=== PATIENT | female | born 1945 | race Two or more races ===

== ENCOUNTER 2017-11-25 09:39 | Outpatient (CLI) | payer OTHER ==
[~2017-11-25 09:39] MED LIST: CIPRO500 MG PO; DIOVAN HCT 160-1 TAB PO; MOBIC15 MG PO
== END 2017-11-25 10:21 | disposition home or self-care (01) ==
LOC: LAB 09:39
DX: G70.00 Myasthenia gravis without (acute) exacerbation (principal)

== ENCOUNTER 2018-04-01 14:48 | Outpatient (CLI) | payer OTHER | END 2018-04-01 16:02 | disposition home or self-care (01) | LOC: RAD 501 14:48 | DX: M25.571 Pain in right ankle and joints of right foot (principal) ==

== ENCOUNTER 2018-04-12 09:56 | Outpatient (CLI) | payer OTHER | END 2018-04-12 09:57 | disposition home or self-care (01) | LOC: LAB 09:56 | DX: E55.9 Vitamin D deficiency, unspecified (principal); M85.9 Disorder of bone density and structure, unspecified; E21.2 Other hyperparathyroidism; M81.8 Other osteoporosis without current pathological fracture; E56.1 Deficiency of vitamin K; E88.89 Other specified metabolic disorders; E83.42 Hypomagnesemia ==

== ENCOUNTER 2018-04-12 10:58 | Outpatient (CLI) | payer OTHER | END 2018-04-12 12:53 | disposition home or self-care (01) | LOC: MAMO-SONO 10:58 | DX: Z12.31 Encounter for screening mammogram for malignant neoplasm of breast (principal); Z87.898 Personal history of other specified conditions; N60.11 Diffuse cystic mastopathy of right breast ==

== ENCOUNTER 2018-04-19 09:11 | Emergency (ER) | payer OTHER ==
[~2018-04-19] VITALS: Ht 162.6 cm; Wt 65.3 kg
[2018-04-19] MEDS ORDERED: BONIVA150 MG PO (09:25)
[2018-04-19] MEDS ORDERED: ASPIR 8181 MG PO (09:27)
[2018-04-19] MEDS ORDERED: SYNTHROID50 MCG PO (09:27)
[2018-04-19] MEDS ORDERED: MEDROLPACK PO (12:50)
[2018-04-19] MEDS ORDERED: NORFLEX100MG PO (13:08)
== END 2018-04-19 13:22 | disposition home or self-care (01) ==
LOC: ER 09:11
DX: M79.605 Pain in left leg (principal); M54.5 Low back pain; I87.2 Venous insufficiency (chronic) (peripheral); R07.89 Other chest pain

== ENCOUNTER 2018-04-20 09:02 | Emergency (ER) | payer OTHER ==
[~2018-04-20] VITALS: Ht 162.6 cm; Wt 65.8 kg
[~2018-04-20 09:02] MED LIST changes: +ASPIR 8181 MG PO; +BONIVA150 MG PO; +MEDROLPACK PO; +NORFLEX100MG PO; +SYNTHROID50 MCG PO
== END 2018-04-20 13:37 | disposition home or self-care (01) ==
LOC: ER 09:02
DX: M54.32 Sciatica, left side (principal)

== ENCOUNTER 2018-05-20 16:20 | Outpatient (CLI) | payer OTHER | END 2018-05-20 16:47 | disposition home or self-care (01) | LOC: RAD 16:20 | DX: G56.21 Lesion of ulnar nerve, right upper limb (principal); M79.671 Pain in right foot ==

== ENCOUNTER 2018-05-31 10:48 | Outpatient (CLI) | payer OTHER | END 2018-05-31 10:56 | disposition home or self-care (01) | LOC: NUCLEAR 10:48 | DX: M81.0 Age-related osteoporosis without current pathological fracture (principal) ==

== ENCOUNTER 2018-11-01 09:58 | Outpatient (CLI) | payer OTHER | END 2018-11-01 13:25 | disposition home or self-care (01) | LOC: LAB 09:58 | DX: I10 Essential (primary) hypertension (principal); E11.9 Type 2 diabetes mellitus without complications; E03.8 Other specified hypothyroidism; E78.2 Mixed hyperlipidemia ==

== ENCOUNTER → 2019-01-19 08:37 | Outpatient (CLI) | payer OTHER | END | disposition home or self-care (01) | LOC: LAB 08:37 | DX: R79.89 Other specified abnormal findings of blood chemistry (principal); I10 Essential (primary) hypertension; E07.89 Other specified disorders of thyroid ==

== ENCOUNTER 2019-02-07 15:20 | Outpatient (CLI) | payer OTHER | END 2019-02-07 15:23 | disposition home or self-care (01) | LOC: RAD 15:20 | DX: M54.2 Cervicalgia (principal) ==

== ENCOUNTER → 2019-02-10 | Outpatient (CLI) | payer OTHER | END | disposition home or self-care (01) | LOC: NUCLEAR 11:00 | DX: I20.9 Angina pectoris, unspecified (principal) | CPT/HCPCS: 78452; 93017; A9500; J0153 ==

== ENCOUNTER 2019-02-18 16:38 | Outpatient (CLI) | payer OTHER | END 2019-02-18 17:02 | disposition home or self-care (01) | LOC: LAB 16:38 | DX: H50.00 Unspecified esotropia (principal) ==

== ENCOUNTER → 2019-02-18 | Outpatient (CLI) | payer OTHER | END | disposition home or self-care (01) | LOC: NUCLEAR 09:00 | DX: G45.9 Transient cerebral ischemic attack, unspecified (principal) ==

== ENCOUNTER 2019-03-11 08:44 | Outpatient (CLI) | payer OTHER | END 2019-03-11 09:03 | disposition home or self-care (01) | LOC: MRI 08:44 | DX: M54.2 Cervicalgia (principal) | CPT/HCPCS: 72141 ==

== ENCOUNTER → 2019-04-07 08:49 | Outpatient (CLI) | payer OTHER ==
[~2019-04-07 08:49] MED LIST changes: +LYRICA50 MG PO
== END | disposition home or self-care (01) ==
LOC: LAB 08:49
DX: N20.0 Calculus of kidney (principal)

== ENCOUNTER 2019-04-08 08:16 | Outpatient (CLI) | payer OTHER | END 2019-04-08 08:31 | disposition home or self-care (01) | LOC: MRI 08:16 | DX: H53.2 Diplopia (principal) | CPT/HCPCS: 70542; A9575 ==

== ENCOUNTER 2019-05-12 09:33 | Outpatient (CLI) | payer OTHER | END 2019-05-12 09:35 | disposition home or self-care (01) | LOC: RAD 09:33 | DX: M25.561 Pain in right knee (principal) ==

== ENCOUNTER → 2019-05-25 16:40 | Outpatient (CLI) | payer OTHER | END | disposition home or self-care (01) | LOC: LAB 16:40 | DX: M25.462 Effusion, left knee (principal) ==

== ENCOUNTER → 2019-05-26 10:33 | Outpatient (CLI) | payer OTHER | END | disposition home or self-care (01) | LOC: LAB 10:33 | DX: E06.4 Drug-induced thyroiditis (principal); D64.89 Other specified anemias ==

== ENCOUNTER → 2019-06-27 10:52 | Outpatient (CLI) | payer OTHER ==
[~2019-06-27 10:52] MED LIST changes: +DICLOFENAC SODI75 MG PO
== END | disposition home or self-care (01) ==
LOC: LAB 10:52
DX: D64.89 Other specified anemias (principal); M10.49 Other secondary gout, multiple sites

== ENCOUNTER 2019-07-01 10:11 | Outpatient (CLI) | payer OTHER ==
[~2019-07-01 10:11] MED LIST changes: -DICLOFENAC SODI75 MG PO
== END 2019-07-01 10:21 | disposition home or self-care (01) ==
LOC: LAB 10:11
DX: E88.89 Other specified metabolic disorders (principal); M85.88 Other specified disorders of bone density and structure, other site; E55.9 Vitamin D deficiency, unspecified; E21.3 Hyperparathyroidism, unspecified; M81.8 Other osteoporosis without current pathological fracture; E56.1 Deficiency of vitamin K

== ENCOUNTER 2019-07-08 14:25 | Emergency (ER) | payer OTHER ==
[~2019-07-08] VITALS: Ht 162.6 cm; Wt 70.3 kg
[2019-07-08] MEDS ORDERED: NORFLEX100MG PO (17:27)
[2019-07-08] MEDS ORDERED: DICLOFENAC SODI75 MG PO (17:27)
== END 2019-07-08 17:42 | disposition home or self-care (01) ==
LOC: ER 14:25
DX: S80.01XA Contusion of right knee, initial encounter (principal); S20.212A Contusion of left front wall of thorax, initial encounter; S20.211A Contusion of right front wall of thorax, initial encounter; S30.1XXA Contusion of abdominal wall, initial encounter; V49.9XXA Car occupant (driver) (passenger) injured in unspecified traffic accident, initial encounter; Y93.89 Activity, other specified; Y92.488 Other paved roadways as the place of occurrence of the external cause; Y99.8 Other external cause status

== ENCOUNTER → 2019-07-29 10:13 | Outpatient (CLI) | payer OTHER ==
[~2019-07-29 10:13] MED LIST changes: +DICLOFENAC SODI75 MG PO
== END | disposition home or self-care (01) ==
LOC: LAB 10:13
DX: M10.9 Gout, unspecified (principal)

== ENCOUNTER 2019-10-06 13:48 | Outpatient (CLI) | payer OTHER | END 2019-10-06 14:00 | disposition home or self-care (01) | LOC: MAMO-SONO 13:48 | DX: Z12.31 Encounter for screening mammogram for malignant neoplasm of breast (principal); Z87.898 Personal history of other specified conditions; N60.11 Diffuse cystic mastopathy of right breast ==

== ENCOUNTER → 2020-07-04 | Outpatient (CLI) | payer OTHER | END | disposition home or self-care (01) | LOC: OFIC 805 09:30 | PROVIDERS: ATTEND Otolaryngology | DX: R13.19 Other dysphagia (principal); H92.02 Otalgia, left ear; K21.9 Gastro-esophageal reflux disease without esophagitis; H90.3 Sensorineural hearing loss, bilateral ==

== ENCOUNTER → 2020-09-13 | Outpatient (CLI) | payer OTHER | END | disposition home or self-care (01) | LOC: OFIC 805 12:20 | PROVIDERS: ATTEND Otolaryngology | DX: K21.9 Gastro-esophageal reflux disease without esophagitis (principal); H90.3 Sensorineural hearing loss, bilateral ==

== ENCOUNTER 2022-03-05 09:16 | Outpatient (CLI) | payer OTHER | END 2022-03-05 09:29 | disposition home or self-care (01) | LOC: MAMO-SONO 09:16 | PROVIDERS: ATTEND Obstetrics & Gynecology | DX: N60.11 Diffuse cystic mastopathy of right breast (principal); R10.9 Unspecified abdominal pain ==

== ENCOUNTER → 2022-03-11 08:26 | Outpatient (CLI) | payer OTHER | END | disposition home or self-care (01) | LOC: NUCLEAR 08:00 | PROVIDERS: ATTEND Psychiatry & Neurology Clinical Neurophysiology | DX: I73.9 Peripheral vascular disease, unspecified (principal) ==

== ENCOUNTER 2022-04-24 07:42 | Outpatient (CLI) | payer OTHER | END 2022-04-24 07:44 | disposition home or self-care (01) | LOC: NUCLEAR 07:42 | PROVIDERS: ATTEND Internal Medicine Cardiovascular Disease | DX: I20.1 Angina pectoris with documented spasm (principal); I10 Essential (primary) hypertension | CPT/HCPCS: 78452; 93017; A9500; J0153 ==

== ENCOUNTER 2022-10-31 15:38 | Emergency (ER) | payer OTHER ==
[~2022-10-31] VITALS: Ht 160 cm; Wt 74.8 kg
[2022-10-31] MEDS ORDERED: SYNTHROID88 MCG PO (16:09)
[2022-10-31] MEDS ORDERED: CLEOCIN HCL150 MG PO (21:10)
== END 2022-10-31 21:29 | disposition home or self-care (01) ==
LOC: ER 15:38
DX: L02.31 Cutaneous abscess of buttock (principal); L03.317 Cellulitis of buttock; I10 Essential (primary) hypertension; E03.9 Hypothyroidism, unspecified

== ENCOUNTER 2022-11-01 16:47 | Emergency (ER) | payer OTHER ==
[~2022-11-01] VITALS: Ht 160 cm; Wt 74.8 kg
[~2022-11-01 16:47] MED LIST changes: +CLEOCIN HCL150 MG PO; +SYNTHROID88 MCG PO
== END 2022-11-02 08:09 | disposition home or self-care (01) ==
LOC: ER 16:47
DX: L02.31 Cutaneous abscess of buttock (principal); L03.317 Cellulitis of buttock

== ENCOUNTER 2022-11-04 09:35 | Outpatient (CLI) | payer OTHER | END 2022-11-04 13:51 | disposition home or self-care (01) | LOC: WOUND MED 09:35 | PROVIDERS: ATTEND Specialist | DX: L02.31 Cutaneous abscess of buttock (principal); I10 Essential (primary) hypertension; L98.412 Non-pressure chronic ulcer of buttock with fat layer exposed | CPT/HCPCS: A4927 ×2; G0463 ==

== ENCOUNTER 2025-01-17 18:20 | Emergency (ER) | payer OTHER ==
[~2025-01-17] VITALS: Ht 160 cm; Wt 74.8 kg
[2025-01-17] MEDS ORDERED: LOSARTAN POTAS100 MG PO (18:48)
[2025-01-17] MEDS ORDERED: DILTIAZEM 24HR240 MG PO (18:49)
[2025-01-17] MEDS ORDERED: ROSUVASTATIN CAL5 MG PO (18:50)
[2025-01-17] MEDS ORDERED: ASPIRIN 325 MG TABLET.EC PO STA (19:02)
[2025-01-17 20:09] LABS: HEMATOCRIT 39.3 % (34.1-44.9); HEMOGLOBIN 12.6 g/dL (11.2-15.7); MEAN CORPUSCULAR HEMOGLOBIN 28.6 pg (25.6-32.2); NEUT % 71.4 % (34.0-71.1); PLATELET COUNT 240 K/uL (163-369); RED CELL DISTRIBUTION WIDTH 13.6 % (11.6-14.4)
[2025-01-17 20:10] LABS: BASO % 0.6 % (0.1-1.2); EOS # 0.07 (0.04-0.54); EOS % 0.7 % (0.7-7.0); LYMPH # 2.08 (1.18-3.74); LYMPH % 21.7 % (19.3-53.1); MONO # 0.52 (0.24-0.82); MONO % 5.4 % (4.7-12.5); NEUT # 6.83 (1.56-6.13)
[2025-01-17 20:29] LABS: PARTIAL THROMBOPLASTIN TIME 28.9 SECONDS (22.0-34.0); PROTHROMBIN TIME 10.9 SECONDS (9.0-11.5)
[2025-01-17 20:32] LABS: CALCIUM 9.5 mg/dL (8.5-10.1); CREATININE SERUM 1.38 mg/dL (0.55-1.02); GFR 36.79; POTASSIUM 4.15 mEq/L (3.5-5.1)
== END 2025-01-17 23:39 | disposition home or self-care (01) ==
LOC: ER 18:38
PROVIDERS: Emergency Medicine
DX: K52.89 Other specified noninfective gastroenteritis and colitis (principal); R07.89 Other chest pain; R19.7 Diarrhea, unspecified; I10 Essential (primary) hypertension; E03.8 Other specified hypothyroidism; E11.9 Type 2 diabetes mellitus without complications; Z88.1 Allergy status to other antibiotic agents

== ENCOUNTER 2025-05-03 09:20 | Outpatient (CLI) | payer OTHER ==
[~2025-05-03 09:20] MED LIST changes: +DILTIAZEM 24HR240 MG PO; +LOSARTAN POTAS100 MG PO; +ROSUVASTATIN CAL5 MG PO
== END 2025-05-03 09:21 | disposition home or self-care (01) ==
LOC: NUCLEAR 09:20
PROVIDERS: ATTEND Internal Medicine Cardiovascular Disease
DX: R41.9 Unspecified symptoms and signs involving cognitive functions and awareness (principal)
CPT/HCPCS: 78803; A9557

== ENCOUNTER 2025-08-22 10:26 | Emergency (ER) | payer OTHER ==
[~2025-08-22] VITALS: Ht 160 cm; Wt 80.7 kg
[2025-08-22 12:31] LABS: BASO % 0.5 % (0.1-1.2); EOS # 0.14 (0.04-0.54); EOS % 2.1 % (0.7-7.0); LYMPH # 1.63 (1.18-3.74); LYMPH % 24.8 % (19.3-53.1); MEAN PLATELET VOLUME 10.60 fl (9.4-12.4); MONO # 0.39 (0.24-0.82); MONO % 5.9 % (4.7-12.5); NEUT # 4.33 (1.56-6.13); NEUT % 66.1 % (34.0-71.1); RED CELL DISTRIBUTION WIDTH 14.0 % (11.6-14.4)
[2025-08-22 13:16] LABS: COVID-19 AG NEGATIVE (NEGATIVE)
[2025-08-22] MEDS ORDERED: LEVALBUTER0.63 MG/3 IH (13:28)
== END 2025-08-22 14:16 | disposition home or self-care (01) ==
LOC: ER 10:27
PROVIDERS: General Practice
DX: J44.9 Chronic obstructive pulmonary disease, unspecified (principal); R06.02 Shortness of breath; E03.8 Other specified hypothyroidism; I10 Essential (primary) hypertension; R05.8 Other specified cough; Z20.822 Contact with and (suspected) exposure to COVID-19; Z88.1 Allergy status to other antibiotic agents